=== PATIENT | male | born 1950 | race Caucasian/White ===

== ENCOUNTER → 2021-02-28 08:53 | Outpatient (BNVA) | payer SELFPAY | PROVIDERS: Visit Provider Urology ==

== ENCOUNTER → 2022-03-20 12:57 | Outpatient (BNVA) | payer MEDICARE, SELFPAY | PROVIDERS: PCP Internal Medicine; Visit Provider Urology | DX: N52.01 Erectile dysfunction due to arterial insufficiency (principal); N40.1 Benign prostatic hyperplasia with lower urinary tract symptoms; N13.8 Other obstructive and reflux uropathy; R97.20 Elevated prostate specific antigen [PSA] | CPT/HCPCS: 51798; 99212 ==

== ENCOUNTER → 2023-03-23 09:44 | Outpatient (BNVA) | payer MEDICARE, SELFPAY | PROVIDERS: PCP Internal Medicine; Visit Provider Urology | DX: N40.1 Benign prostatic hyperplasia with lower urinary tract symptoms (principal); N13.8 Other obstructive and reflux uropathy; N52.01 Erectile dysfunction due to arterial insufficiency; R97.20 Elevated prostate specific antigen [PSA] | CPT/HCPCS: 99212 ==

== ENCOUNTER 2024-03-24 08:37 | Outpatient (AMB) | payer MEDICARE, SELFPAY ==
--- NOTE | 2024-03-24 08:41 | MHC.OFFVIS ---
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 He is a patient of Dr. Han. He is seen for the following urologic conditions. - lower urinary tract symptoms - elevated PSA - erectile dysfunction Continue good response with dutasteride twice week therapy Doing well with daily tadalafil Takes p.r.n. tamsulosin when traveling Also continued response to 5 mg daily tadalafil Prescriptions refill 12 month follow-up Has been on [employer] advisory board Prostate/Bladder: Stable with PSA Continues taking dutasteride twice a week Elevated PSA/Abnormal BRAYDEN: Known large prostate volume PSA staying at 4.9 - had reduced 5AR so this is allowable. He presents for further evaluation of elevated PSA. Current management is observation. Laboratory investigations include a total PSA evaluation July 2009 2.0, April 2012 5.2, 25% free, 2012 2.4, December 2014 3.0, January 2017 7.3, free 16%, PCPT 9% high-grade April 2017 7.6 18% Aug 2017 7.8 PSAD < 0.10 01/16 , a free and total PSA evaluation 4.5 24% 12/17 PSA 4.9 01/18 3.3, 01/19 3.4, 02/18 3.0, 02/19 3.2 Imaging investigations include a transrectal ultrasound Yes bladder us 09/14 - enlarged markedly Prostate Volume 105 Individualized Prostate Cancer Risk Calculator 5-10% high risk. Therapeutic plan will be PSA density is within acceptable limits. [facility] Medical History BPH (benign prostatic hyperplasia) Elevated PSA Erectile dysfunction due to arterial insufficiency HTN (hypertension) Lower urinary tract symptoms due to benign prostatic hyperplasia Surgical History History of appendectomy Hx of arthroscopic knee surgery Hx of laminectomy Hx of vasectomy Review of Systems Const Denies chills and Denies fever(s) Card Reports no additional complaints and Denies syncope Resp Denies cough GI Denies abdominal pain and Denies heartburn Reports as per HPI and Denies change in libido Neuro Denies syncope Psych Denies change in libido Endo Denies change in libido Physical Exam Const General: cooperative, healthy appearing, comfortable and no acute distress Orientation/consciousness: patient oriented x3 HEENT Face and sinus: Yes normal facial exam Mouth: moist mucous membranes Neck Neck: Yes normal visual inspection, Yes full ROM and Yes trachea midline Chest Chest palpation & inspection: normal inspection of the chest Resp Effort & Inspection: normal respiratory effort, able to speak in complete sentences and no respiratory distress GI Inspection: Yes normal to inspection Back/Spine/Pelvis Cervical Spine: normal cervical lordosis Thoracic/Lumbar Spine: thoracic and lumbar spine normal to inspection Skin General skin exam: no rashes or lesions noted Neuro General: patient oriented x3, gait normal, tone normal and moves all extremities Extrem General: Yes normal to inspection and Yes capillary refill normal Office Procedures Post Void Residual Post Residual Void Post Void Residual (PVR): 0 [id number] Void Residual by ultrasound Assessment & Plan Assessment & Plan (1) BPH w urinary obs/LUTS: Code(s): N40.1 - Benign prostatic hyperplasia with lower urinary tract symptoms; N13.8 - Other obstructive and reflux uropathy Category: Medical (2) Elevated PSA: Code(s): R97.20 - Elevated prostate specific antigen [PSA] Category: Medical (3) Erectile dysfunction due to arterial insufficiency: Code(s): N52.01 - Erectile dysfunction due to arterial insufficiency Category: Medical Plan Twelve month follow-up renal US Orders: Orders AMB Post Void Residual by ultrasound Today N13.8 - Other obstructive and reflux uropathy, N40.1 - Benign prostatic hyperplasia with lower urinary tract symptoms Prostate Specific Antigen 364 Days R97.20 - Elevated prostate specific antigen [PSA] Patient Instructions: Imaging studies, laboratory and physical exam results were discussed and reviewed in detail. No major barriers to patient understanding were identified. An opportunity to ask questions regarding the treatment plan was provided. All questions were answered. The patient expressed understanding and agreement with the above treatment plan. The patient is aware they should contact our office by phone for worsening of their current condition or the appearance of new urologic symptoms. Compliance is encouraged with any medications and followup testing that is ordered. It is a privilege to participate in the urologic care of your patient. If you have any questions or concerns regarding treatment for the above conditions, or other urologic issues, please do not hesitate to contact me. The office telephone contact is [phone]. This note is constructed using voice recognition software. While every effort has been made to ensure accuracy passenger vessel chef errors may have been included. Yours sincerely, Dr Kan Lewis MD, [facility] - Urology Providers of Expert, Compassionate Care for the Genitourinary System Coding Level of Care Code Est Pt Level 4 (87427) Diagnoses BPH w urinary obs/LUTS N40.1; N13.8 Elevated PSA R97.20 Erectile dysfunction due to arterial insufficiency N52.01 CPT Codes Post Residual Void - PVR CPT Code: 81368-[id number] Void Residual by ultrasound ([id number])
== END 2024-03-24 09:27 | disposition home or self-care (01) ==
PROVIDERS: Visit Provider Urology
DX: N40.1 Benign prostatic hyperplasia with lower urinary tract symptoms (principal); N13.8 Other obstructive and reflux uropathy; R97.20 Elevated prostate specific antigen [PSA]; N52.01 Erectile dysfunction due to arterial insufficiency
CPT/HCPCS: 99213

== ENCOUNTER → 2024-03-24 08:37 | Outpatient (BNVA) | payer MEDICARE, SELFPAY | PROVIDERS: Visit Provider Urology | DX: N40.1 Benign prostatic hyperplasia with lower urinary tract symptoms (principal); N13.8 Other obstructive and reflux uropathy; R97.20 Elevated prostate specific antigen [PSA]; N52.01 Erectile dysfunction due to arterial insufficiency; Z79.899 Other long term (current) drug therapy | CPT/HCPCS: 51798; 99212 ==

== ENCOUNTER 2025-03-23 08:41 | Outpatient (AMB) | payer MEDICARE, SELFPAY ==
--- NOTE | 2025-03-23 08:43 | A.OFFVIS_ITS ---
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 He is seen for the following urologic conditions. - lower urinary tract symptoms - elevated PSA - erectile dysfunction Continue good response with dutasteride twice week therapy Doing well with daily tadalafil Takes p.r.n. tamsulosin when traveling Also continued response to 5 mg daily tadalafil Prescriptions refill 12 month follow-up Has been on [employer] advisory board Urinary Symptoms Review - Lower urinary tract symptoms managed with dutasteride twice weekly. - Taking daily tadalafil, and PRN tamsulosin when traveling. - Previous urinary retention post-surgery; anticipates issues with upcoming knee replacement. - Recent PVR noted at 30 cc, previously 0 cc. - No reported nocturia or incontinence issues under managed conditions. - Discussed use of Ashley catheter post-knee replacement to mitigate retention. Prostate/Bladder: Stable with PSA Continues taking dutasteride twice a week Elevated PSA/Abnormal BRAYDEN: Known large prostate volume PSA staying at 4.9 - had reduced 5AR so this is allowable. He presents for further evaluation of elevated PSA. Current management is observation. Laboratory investigations include a total PSA evaluation July 2009 2.0, April 2012 5.2, 25% free, 2012 2.4, December 2014 3.0, January 2017 7.3, free 16%, PCPT 9% high-grade April 2017 7.6 18% Aug 2017 7.8 PSAD < 0.10 01/16 , a free and total PSA evaluation 4.5 24% 12/17 PSA 4.9 01/18 3.3, 01/19 3.4, 02/18 3.0, 02/19 3.2 Imaging investigations include a transrectal ultrasound Yes bladder us 09/14 - enlarged markedly Prostate Volume 105 Individualized Prostate Cancer Risk Calculator 5-10% high risk. Therapeutic plan will be PSA density is within acceptable limits. [facility] Medical History BPH (benign prostatic hyperplasia) Elevated PSA Erectile dysfunction due to arterial insufficiency HTN (hypertension) Lower urinary tract symptoms due to benign prostatic hyperplasia Surgical History History of appendectomy Hx of arthroscopic knee surgery Hx of laminectomy Hx of vasectomy Review of Systems Const Denies chills and Denies fever(s) Card Reports no additional complaints and Denies syncope Resp Denies cough GI Denies abdominal pain and Denies heartburn Reports as per HPI and Denies change in libido Neuro Denies syncope Psych Denies change in libido Endo Denies change in libido Physical Exam Const General: cooperative, healthy appearing, comfortable and no acute distress Orientation/consciousness: patient oriented x3 HEENT Face and sinus: Yes normal facial exam Mouth: moist mucous membranes Neck Neck: Yes normal visual inspection, Yes full ROM and Yes trachea midline Chest Chest palpation & inspection: normal inspection of the chest Resp Effort & Inspection: normal respiratory effort, able to speak in complete sentences and no respiratory distress GI Inspection: Yes normal to inspection Back/Spine/Pelvis Cervical Spine: normal cervical lordosis Thoracic/Lumbar Spine: thoracic and lumbar spine normal to inspection Skin General skin exam: no rashes or lesions noted Neuro General: patient oriented x3, gait normal, tone normal and moves all extremities Extrem General: Yes normal to inspection and Yes capillary refill normal Results AMB Urinalysis, Automated UA Leukoctes 0 Moy/uL Last Edit by Teresita Macdonald on 03/23/25 09:35 UA Nitrite Negative Last Edit by Teresita Macdonald on 03/23/25 09:35 UA Urobilinogen 0.2 mg/dL Last Edit by Teresita Macdonald on 03/23/25 09:35 UA Protein 0 mg/dL Last Edit by Teresita Macdonald on 03/23/25 09:35 UA pH 6.5 Last Edit by Teresita Macdonald on 03/23/25 09:35 UA Blood 80 Darvin/uL Last Edit by Teresita Macdonald on 03/23/25 09:35 UA Specific [place] 1.015 Last Edit by Teresita Macdonald on 03/23/25 09:35 UA Ketone Negative Last Edit by Teresita Macdonald on 03/23/25 09:35 UA Bilirubin 0 mg/dL Last Edit by Teresita Macdonald on 03/23/25 09:35 UA Glucose 0 mg/dL Last Edit by Teresita Macdonald on 03/23/25 09:35 Assessment & Plan Assessment & Plan (1) BPH w urinary obs/LUTS: Code(s): N40.1 - Benign prostatic hyperplasia with lower urinary tract symptoms; N13.8 - Other obstructive and reflux uropathy Category: Medical (2) Erectile dysfunction due to arterial insufficiency: Code(s): N52.01 - Erectile dysfunction due to arterial insufficiency Category: Medical (3) Elevated PSA: Code(s): R97.20 - Elevated prostate specific antigen [PSA] Category: Medical Plan 1. Benign Prostatic Hyperplasia Management includes dutasteride twice weekly and daily tadalafil. PRN tamsulosin for travel. Stable symptoms. Monitoring PSA. 2. Erectile Dysfunction Continue daily tadalafil. Monitoring effect and tolerability. 3. Elevated Prostate-Specific Antigen PSA PSA to be rechecked in six months. Possible prostate MRI if indicated. 4. Urinary Retention Prophylactic Ashley catheter post-knee replacement to manage anesthesia-related retention. 5. Degenerative Joint Disease Scheduled Knee Replacement Communicated plan for post-surgical Ashley catheter placement to manage retention risk. Discussion Notes During the visit, we reviewed the patient's lower urinary tract symptoms, prim arily managed by dutasteride and tadalafil, with PRN tamsulosin aiding during travel. Despite noted PSA variation, current levels are stable. We discussed potential concerns of urinary retention in light of his impending knee replacement, outlining a plan for proactive Ashley catheter placement. Requests for catheter usage post-procedure align with historical issues of anesthesia- induced urinary retention, which was mutually consented to minimize immediate post-operative complications. Furthermore, the utility of further diagnostic PSA monitoring was considered, deferring immediate MRI unless significant changes arise. The benefits, rationale, and preventative strategies were sufficiently conveyed and understood by the patient, providing clear anticipatory guidance for recovery. Patient Instructions - Continue dutasteride twice weekly and daily tadalafil. - Use tamsulosin as needed when traveling. - Inform surgical and anesthesia teams about the Ashley catheter plan for upcoming surgery. - Return for PSA check in six months or sooner if urinary symptoms worsen. - Discuss any new urinary symptoms or medication side effects promptly. - Follow all pre-and post-operative instructions for knee replacement surgery. - Engage in pre-habilitation exercises as advised prior to surgery. Orders: Orders PSA,Total (Free>4and<10) 6 Months R97.20 - Elevated prostate specific antigen [PSA] Patient Instructions: This note is constructed using voice recognition software. While every effort has been made to ensure accuracy ocean export coordinator errors may have been included. Imaging studies, laboratory and physical exam results were discussed and reviewed in detail. No major barriers to patient understanding were identified. An opportunity to ask questions regarding the treatment plan was provided. All questions were answered. The patient expressed understanding and agreement with the above treatment plan. The patient is aware they should contact our office by phone for worsening of their current condition or the appearance of new urologic symptoms. Compliance is encouraged with any medications and followup testing that is ordered. It is a privilege to participate in the urologic care of your patient. If you have any questions or concerns regarding treatment for the above conditions, or other urologic issues, please do not hesitate to contact me. The office telephone contact is [phone]. Sincerely, Dr Kan Lewis MD, [facility] - Urology Compassionate Specialist Care for the Genitourinary System Coding Level of Care Code Est Pt Level 4 (84054) Complex EM visit Add On G2211 Diagnoses BPH w urinary obs/LUTS N40.1; N13.8 Erectile dysfunction due to arterial insufficiency N52.01 Elevated PSA R97.20
--- OUTSIDE RECORDS SUMMARY | 2025-03-23 08:47 | XMS_ITS ---
Author Organization [facility] Address [address] [facility] [place] [address] Care Team Providers Care Teacher Associate Name Role Phone Maryellen LELA MSc, Linda Unavailable [phone] REASON FOR VISIT PT Progress Note Encounters Encounter Location Date Provider Diagnosis [facility] [address] [place] [address] 06/07/2024 Linda Bojorquez Plan Of Treatment No Information Progress Notes * Sammy CHAMBERLAINDOB:1950 (73 yo M)Acc No.[id number]:06/07/2024 Patient:?Sammy CHAMBERLAIN :1950???Age:73 Y???Sex:Male Address:[address] [place] [id number] * true * Date:? Generated for Dorai ryan/Mookie/eTransmitting on:?03/23/2025 08:47 AM EDT
--- OUTSIDE RECORDS SUMMARY | 2025-03-23 08:47 | XMS_ITS ---
Author Organization [facility] Address [address] [facility] [address] [place] [address] Care Team Providers Care Face Hardener Name Role Phone Maryellen LEAL MSc, Linda Unavailable [phone] REASON FOR VISIT PT Progress Note Encounters Encounter Location Date Provider Diagnosis [facility] [address] [place] [address] 07/13/2024 Linda Bojorquez Plan Of Treatment No Information Progress Notes * Sammy CHAMBERLAINDOB:1950 (73 yo M)Acc No.[id number]:07/13/2024 Patient:?Sammy CHAMBERLAIN :1950???Age:73 Y???Sex:Male Address:[address] [place] [id number] * true * Date:? Generated for Dorai ryan/Mookie/eTransmitting on:?03/23/2025 08:47 AM EDT
--- OUTSIDE RECORDS SUMMARY | 2025-03-23 08:47 | XMS_ITS | Clinical Summary ---
Author Organization [facility] [employer] Address [address] [facility] [place] [address] Phone Care Team Providers Care Curator Of Manuscripts Name Role Phone Chapincito Han MD Primary Care Provider Allergies Active Allergy Reactions Criticality Noted Date Comments Ciprofloxacin Low 10/31/2020 Other reaction(s): Rash Medications irbesartan (AVAPRO) 150 mg tabletIndications :Mixed hyperlipidemia,Es sential (primary) hypertension TAKE 1 AND 1/2 TABLETS DAILY BY MOUTH 135 tablet 1 4 Active metoprolol succinate (TOPROL-XL) 25 mg 24 hr tablet TAKE 1 TABLET BY MOUTH EVERY DAY 90 tablet 1 5 Active rosuvastatin (CRESTOR) 20 mg tablet Take 20 mg by mouth daily. Active tadalafiL (CIALIS) 5 mg tablet Take 5 mg by mouth as needed. Active dutasteride (AVODART) 0.5 mg capsule Take by mouth. Take 0.5 mg by mouth daily. - Oral Active Active Problems Problem Noted Date Diagnosed Date Essential hypertension 01/15/2025 Left atrial enlargement 01/15/2025 Carpal tunnel syndrome on both sides 05/14/2023 Mixed hyperlipidemia 05/13/2022 Overview (01/18/2025): Last Assessment & Plan: Last lipid panel 12/20 total cholesterol 141, HDL 58, LDL 62. Continue statin. Encounters Date Type Department Care Team Description 03/20/2025 5:38 PM EDT - 03/20/2025 11:59 PM EDT Hospital Encounter [facility] MRI [address] [place] [id number] Pain Discharge Disposition: Home or Self Care 03/08/2025 Telephone [place] [address] [phone] Alexia Carter MD 03/06/2025 10:00 AM EDT Ancillary Procedure [place] [address] [phone] Pre-operative cardiovascular examination (Primary Dx); Essential hypertension; Left atrial enlargement from Last 3 Months Social History Tobacco Use Types Packs/Day Years Used Date Smoking Tobacco: Never Smokeless Tobacco: Never Alcohol Use Standard Drinks/Week Comments Yes 0 (1 standard drink = 0.6 oz pur e alcohol) Sex and Gender Information Value Date Recorded Sex Assigned at Not on file Legal Sex Male 9:00 PM EST Gender Identity Not on file Sexual Orientation Not on file Obstetrics History Last Filed Vital Signs Vital Sign Reading Time Taken Comments Blood Pressure 147/77 03/06/2025 10:55 AM EDT Pulse 51 05/13/2022 9:39 AM EDT Temperature - - Respiratory Rate - - Oxygen Saturation - - Inhaled Oxygen Concentration - - Weight 82.6 kg (182 lb) 03/06/2025 10:55 AM EDT Height 172.7 cm (5' 8 ) 03/06/2025 10:55 AM EDT Body Mass Index 27.67 03/06/2025 10:55 AM EDT Plan of Treatment Upcoming Encounters Date Type Department Care Team (Late st Contact Info) Description 10/05/2025 9:50 AM EST Office Visit [place] [address] [phone] Alexia Carter MD [address] [place] [phone] Health Maintenance Due Date Last Done Comments Colorectal Cancer Screening: Colonoscopy 11/08/2022 Depression Screening 11/08/2022 Falls Risk Assessment 11/08/2022 Hepatitis C Screening 11/08/2022 Social Influencers of Health Screening 11/08/2022 Medicare Annual Wellness Visit 12/30/2023 12/30/2022 COVID-19 Vaccine ( season) 2025 08/01/2024, 10/04/2023, 09/24/2022, Additional history exists Hypertension/CHF/CAD Annual BMP Blood Test 02/16/2025 02/17/2024, 01/22/2021 RSV Immunization Adult Patients (1 - 1-dose 75+ series) 2027 Cholesterol Screening (Lipid Panel) 02/16/2029 02/17/2024, 01/22/2021 DTaP,Tdap,and Td Vaccines (2 - Td or Tdap) 07/28/2034 07/28/2024 Zoster Vaccines Completed 01/05/2022, 06/30, 08/15/2017 Pneumococcal Vaccine: 50+ Years Completed 12/02/2023, 10/31/2020 Influenza Vaccine Completed 10/23/2024, , 09/24/2022, Additional history exists HIB Vaccines Aged Out No longer eligi ble based on patient's age to complete this topic HPV Vaccines Aged Out No longer eligi ble based on patient's age to complete this topic Hepatitis A Vaccines Aged Out No long er eligible based on patient's age to complete this topic Hepatitis B Vaccines Aged Out No long er eligible based on patient's age to complete this topic IPV Vaccines Aged Out No longer eligi ble based on patient's age to complete this topic MMR Vaccines Aged Out No longer eligi ble based on patient's age to complete this topic Meningococcal ACWY Vaccine Aged Out N o longer eligible based on patient's age to complete this topic Meningococcal B Vaccine Aged Out No l onger eligible based on patient's age to complete this topic RSV Immunization Patients Under 20 months Aged Out No longer eligible based on patient's age to complete this topic Varicella Vaccines Aged Out No longer eligible based on patient's age to complete this topic Procedures Procedure Name Priority Date/Time Associated Diagnosis Comments MR CERVICAL SPINE WO CONTRAST Routine 03/20/2025 6:14 PM EDT Pain ECG 12-LEAD Routine 03/06/2025 11:06 AM EDT Essential hypertension Left atrial enlargement Pre-operative cardiovascular examination TRANSTHORACIC ECHOCARDIOGRAM (TTE) COMPLETE Routine 03/06/2025 10:55 AM EDT Essential hypertension Left atrial enlargement ANNUAL BMP BLOOD TEST Routine 02/17/2024 LIPID PANEL Routine 02/17/2024 from Last 3 Months or Most Recently Relevant to Health Maintenance Results * MR Cervical Spine wo Contrast (03/20/2025 6:14 PM EDT) Anatomical Region Laterality Modality C-spine, Spine Magnetic Resonan ce 03/21/2025 8:24 AM EDT Impressions 03/21/2025 8:46 AM EDT 1. ??Multilevel degenerative changes of the cervical spine as detailed above. 2. ??Stable small focus of signal abnormality in the left central cord at the superior C4 level suggestive of myelomalacia. ??Stable mild generalized cervical cord atrophy. -------- FINAL REPORT -------- Dictated By: Irving Padilla Dictated Date: 03/21/2025 08:24 ET Assigned Physician: Irving Padilla Reviewed and Electronically Signed By: Irving Padilla Signed Date: 03/21/2025 08:46 ET Workstation ID: [id number] Transcribed By: Self Edit Transcribed Date: 03/21/2025 08:29 ET Narrative 03/21/2025 8:46 AM EDT PROCEDURE: MRI of the cervical spine without intravenous contrast. TECHNIQUE: Sagittal and axial multisequence MRI of the cervical spine without intravenous contrast administration. HISTORY: pain COMPARISON: 11/19/2022. FINDINGS: Visualized portions of the brain and skull base are normal. The paraspinous soft tissues are normal. No marrow signal abnormality. ??Straightening of the typical cervical lordosis. Stable small focus of signal abnormality in the left central cord at the superior C4 level. ??Mild generalized cervical cord atrophy. Cervical disc levels: C2-3: Mild endplate irregularity. ??Small bilateral uncovertebral spurs and minimal degenerative changes of the facet joints. ??No spinal or foraminal stenosis. C3-4: Mild endplate irregularity. ??Minimal anterior endplate osteophytes. ??Small bilateral uncovertebral spurs. ??Small central focal protrusion which indents the cord. ??Moderate right and mild left facet arthropathy. ??Mild spinal stenosis. ??Moderate right foraminal stenosis. C4-5: Slight anterolisthesis. ??Mild endplate irregularity. ??Minimal bilateral uncovertebral spurring. ??Small symmetric disc bulge with a superimposed small central focal protrusion. ??Mild posterior ligamentous hypertrophy. ??Moderate left and mild right facet arthropathy. ??Mild-moderate spinal stenosis. ??Severe left and moderate right foraminal stenosis. C5-6: Mild disc space height loss and endplate irregularity. ??Small anterior endplate osteophytes. ??Minimal bilateral uncovertebral spurs. ??Moderate left and mild right facet arthropathy. ??No spinal stenosis. ??Moderate-severe right and mild left foraminal stenosis. C6-7: Mild disc space height loss and endplate irregularity. ??Small anterior endplate osteophytes. ??Small right larger than left uncovertebral spurs and a small symmetric disc osteophyte complex. ??Mild bilateral facet arthropathy. ??No significant spinal stenosis. ??Mild-moderate bilateral foraminal stenosis. C7-T1: Mild endplate irregularity. ??Minimal anterior endplate osteophytes. ??Minimal right uncovertebral spurs. ??Mild bilateral facet arthropathy. ??Mild bilateral foraminal stenosis. ??No spinal stenosis. Procedure Note Irving Padilla MD - 03/21/2025 PROCEDURE: MRI of the cervical spine without intravenous contrast. TECHNIQUE: Sagittal and axial multisequence MRI of the cervical spinewithout intravenous contrast administration. HISTORY: pain COMPARISON: 11/19/2022. FINDINGS: Visualized portions of the brain and skull base are normal. The paraspinous soft tissues are normal. No marrow signal abnormality. Straightening of the typical cervicallordosis. Stable small focus of signal abnormality in the left central cord at thesuperior C4 level. Mild generalized cervical cord atrophy. Cervical disc levels: C2-3: Mild endplate irregularity. Small bilateral uncovertebral spurs andminimal degenerative changes of the facet joints. No spinal or foraminalstenosis. C3-4: Mild endplate irregularity. Minimal anterior endplate osteophytes.Small bilateral uncovertebral spurs. Small central focal protrusion whichindents the cord. Moderate right and mild left facet arthropathy. Mildspinal stenosis. Moderate right foraminal stenosis. C4-5: Slight anterolisthesis. Mild endplate irregularity. Minimalbilateral uncovertebral spurring. Small symmetric disc bulge with asuperimposed small central focal protrusion. Mild posterior ligamentoushypertrophy. Moderate left and mild right facet arthropathy.Mild-moderate spinal stenosis. Severe left and moderate right foraminalstenosis. C5-6: Mild disc space height loss and endplate irregularity. Smallanterior endplate osteophytes. Minimal bilateral uncovertebral spurs.Moderate left and mild right facet arthropathy. No spinal stenosis.Moderate-severe right and mild left foraminal stenosis. C6-7: Mild disc space height loss and endplate irregularity. Smallanterior endplate osteophytes. Small right larger than left uncovertebralspurs and a small symmetric disc osteophyte complex. Mild bilateral facetarthropathy. No significant spinal stenosis. Mild-moderate bilateralforaminal stenosis. C7-T1: Mild endplate irregularity. Minimal anterior endplate osteophytes.Minimal right uncovertebral spurs. Mild bilateral facet arthropathy.Mild bilateral foraminal stenosis. No spinal stenosis. IMPRESSION: 1. Multilevel degenerative changes of the cervical spine as detailedabove. 2. Stable small focus of signal abnormality in the left central cord atthe superior C4 level suggestive of myelomalacia. Stable mild generalizedcervical cord atrophy. -------- FINAL REPORT -------- Dictated By: Irving Padilla Dictated Date: 03/21/2025 08:24 ET Assigned Physician: Irving Padilla Reviewed and Electronically Signed By: Irving Padilla Signed Date: 03/21/2025 08:46 ET Workstation ID: [id number] Transcribed By: Self Edit Transcribed Date: 03/21/2025 08:29 ET us Lencho Mcdonald MD IMG MRI PROCEDURES Final Result * ECG 12 lead (03/06/2025 11:06 AM EDT) Ventricular Rate ECG 46 BPM GEMUSE Atrial Rate 46 BPM GEMUSE P-R Interval 154 ms GEMUSE QRS Duration 96 ms GEMUSE Q-T Interval 452 ms GEMUSE QTc 395 ms GEMUSE P Wave Phoenix 33 degrees GEMUSE R [place] 24 degrees GEMUSE T Phoenix -2 degrees GEMUSE ECG Interpretation Sinus bradycardia Nonspecific T wave abnormality Abnormal ECG When compared with ECG of 17-AUG-2012 11:21, Vent. rate has decreased BY ??25 BPM Nonspecific T wave abnormality, worse in Inferior leads T wave inversion now evident in Lateral leads But samw as office ecg 2023 Confirmed by Estfeanía CARTER, ALEXIA ([id number]) on 03/07/2025 2:20:05 PM GEMUSE 03/06/2025 11:0 6 AM EDT 03/07/2025 2:20 PM EDT us Alexia Carter MD ECG ORDERABLES Final Result GEMUSE * (ABNORMAL) TRANSTHORACIC ECHOCARDIOGRAM (TTE) COMPLETE (03/06/2025 10:55 AM EDT) Left Atrium Minor Phoenix 6.1 cm CV PACS Left Atrium Major Phoenix 6.1 cm CV PACS LA Area Sys (A2C) 21 cm2 CV PACS LA Area Sys (A4C) 23 cm2 CV PACS LA Volume (BP) 74 mL CV PACS RA Area 14.5 cm2 CV PACS RA 2D Volume 34 mL CV PACS AV Regurgitation PHT 619 ms CV PACS AR Max Velocity 4.7 m/s CV PACS AV Peak Patel 1.7 m/s CV PACS AV Peak Gradient 11 mmHg CV PACS AV Mean Gradient 5 mmHg CV PACS Ao VTI 38.9 cm CV PACS AV Area Continuity Equation 2.5 cm2 CV PACS AV Area Peak Velocity 2.4 cm2 CV PACS Aortic Sinus Valsalva 3.6 cm CV PACS Ascending Aorta 3.4 cm CV PACS IVC Proximal 1.3 cm CV PACS IVSD 1.3(A) 0.6 - 1.0 cm CV PACS LVIDD 5.0 4.2 - 5.8 cm CV PACS LVIDS 2.8 2.5 - 4.0 cm CV PACS LVOT Diameter 2.2 cm CV PACS LVOT Mean Patel 0.6 m/s CV PACS LVOT Mean Grad 2 mmHg CV PACS LVOT Peak VTI 25.2 cm CV PACS LVOT Peak Patel 1.1 m/s CV PACS LVOT Peak Gradient 4 mmHg CV PACS LVPWD 1.2(A) 0.6 - 1.0 cm CV PACS MV E' Tissue Velocity Lateral 9 cm/s CV PACS MV E' Tissue Velocity Septal 11 cm/s CV PACS LVOT Area 3.8 cm2 CV PACS LVOT Stroke Volume 96 mL CV PACS MV Deceleration [place] 2.3 m/s2 CV PACS E Wave Deceleration Time 226 119 - 242 ms CV PACS MV PHT 66 ms CV PACS MV Peak A Patel 0.78 m/s CV PACS MV Peak E Patel 0.51 m/s CV PACS MV Area PHT 3.3 cm2 CV PACS PV Acceleration Time 106 ms CV PACS PV Peak Velocity 1.4 m/s CV PACS PV Peak Gradient 8 mmHg CV PACS RV Diastolic Basal Dimension 3.3 2.5 - 4.1 cm CV PACS TAPSE 25 mm CV PACS TR Peak Velocity 2.51 m/s CV PACS TR Peak Gradient 25 mmHg CV PACS E/E' Ratio Septal 5 CV PACS E/E' Ratio Averaged 5 CV PACS Relative Wall Thickness ratio 0.48 CV PACS LVOT:AV VTI Index 0.65 CV PACS FS 44 % CV PACS LV Mass 2D 248 g CV PACS LVOT flow 228 mL/s CV PACS AV Velocity Ratio 0.65 CV PACS E/A Ratio 0.7 CV PACS E/E' Ratio Lateral 6 CV PACS BSA 1.99 m2 CV PACS LA Volume Index (BP) 38(A) mL/m2 CV PACS LVIDD Index 2.55 cm/m2 CV PACS LVIDS Index 1.43 cm/m2 CV PACS LV Mass Index 2D 126(A) 50 - 102 g/m2 CV PACS LVOT Stroke Index 49 mL/m2 CV PACS RA 2D Volume Index 17(A) 18 - 32 mL/m2 CV PACS AMRITA Index (VTI) 1.26 cm2/m2 CV PACS AMRITA Index (Pk Patel) 1.22 cm2/m2 CV PACS Ascending Aorta Index 1.73 cm/m2 CV PACS Anatomical Region Laterality Modality Ultrasound Narrative 03/08/2025 8:49 AM EDT ?Mild concentric LVH. ??Normal internal cavity dimensions. ??Vigorous systolic function with an EF in the range of 60%. ??No wall motion abnormalities. ??Normal diastolic function ?Normal RV size and function. ?Mildly dilated left atrium with a volume index in the range of 37 mL/m?Normal right atrial size ?Trace MR. ??Trace-1+ aortic insufficiency. ??No other valvular abnormalities. ?Normal aorta. ?[facility] ??In 2019 the LA volume index was 48 mL/m??. ??And on some of the measurements today it reached 47. ??So no significant change dating back to 2019. ??The volume index is somewhere between 37 and 47 depending on the image chosen. Left Ventricle Left ventricle cavity size is normal. There is mild hypertrophy. Systolic function is normal with an ejection fraction of 60-65%. There are no regional LV wall motion abnormalities. There is no diastolic dysfunction. Right Ventricle Right ventricle cavity appears normal. Systolic function is normal. Left Atrium Left atrium cavity is moderately dilated. I believe the volume index is closer to 37 mL/m??. Right Atrium Right atrium cavity is mildly dilated. Mitral Valve The leaflets are mildly thickened. There is trace regurgitation. There is no evidence of mitral valve stenosis. Tricuspid Valve Tricuspid valve structure is normal. There is trace-mild regurgitation. There is no evidence of tricuspid valve stenosis. Aortic Valve The aortic valve is trileaflet. There is mild regurgitation. There is no evidence of aortic valve stenosis. Pulmonic Valve Visualized portions of the pulmonic valve appear normal. No significant pulmonic valve regurgitation. There is no evidence of pulmonic valve stenosis. Ascending Aorta The Sinus of Valsalva is (3.6 cm). The ascending aorta is (3.4 cm). Pericardium Pericardium appears normal. Study Details Overall the study quality was adequate. us Alexia Carter MD CV ECHO PROCEDURES Final Result * Annual BMP Blood Test (02/17/2024) Annual BMP Blood Test Abstracted Result [facility] Historical Provider HEALTH MAINTENANCE Final Result * (ABNORMAL) Lipid panel (02/17/2024) LDL/HDL Ratio 3 0 - 4 Triglycerides 97 0 - 150 mg/dL Cholesterol 182 0 - 200 mg/dL HDL 53 >=40 mg/dL LDL Cholesterol 110(A) 0 - 100 mg/dL Blood Venous blood specimen / Unknown Historical Provider LAB BLOOD ORDERABLES Ariana l Result from Last 3 Months or Most Recently Relevant to Health Maintenance Insurance MEDICARE [facility] Advance Directives Documents on File Type Date Recorded Patient Area Relief Pilot Expl anation Health Care Decision (hx) 08/19/2012 AD FERGUSON DIRECTIVE Health Care Decision (hx) 08/19/2012 AD FERGUSON DIRECTIVE Health Care Decision (hx) 08/19/2012 AD FERGUSON DIRECTIVE Health Care Decision (hx) 08/19/2012 AD FERGUSON DIRECTIVE Health Care Decision (hx) 08/19/2012 AD FERGUSON DIRECTIVE Health Care Decision (hx) 08/19/2012 AD FERGUSON DIRECTIVE Health Care Decision (hx) 08/19/2012 AD FERGUSON DIRECTIVE Health Care Decision (hx) 08/19/2012 AD FERGUSON DIRECTIVE Health Care Decision (hx) 08/19/2012 AD FERGUSON DIRECTIVE Health Care Decision (hx) 08/19/2012 AD FERGUSON DIRECTIVE Health Care Decision (hx) 08/19/2012 AD FERGUSON DIRECTIVE Health Care Decision (hx) 08/19/2012 AD FERGUSON DIRECTIVE Health Care Decision (hx) 08/19/2012 AD FERGUSON DIRECTIVE Health Care Decision (hx) 08/19/2012 AD FERGUSON DIRECTIVE Health Care Decision (hx) 08/19/2012 AD FERGUSON DIRECTIVE Care Teams Curator Of Manuscripts Relationship Specialty Start Date End Date Chapincito Han MD [address] [facility] [address] [place], [place] PCP - General Internal Medicine 11/29/11
--- OUTSIDE RECORDS SUMMARY | 2025-03-23 08:47 | XMS_ITS | Encounter Summary ---
Author Organization [facility] Address [address] [place] [address] Care Team Providers Care Dice Table Person Name Role Phone Chapincito Han MD Primary Care Provider [phone] Reason for Referral * Imaging (Routine) - Authorized Specialty Diagnoses / Procedures Referred By Contac t Referred To Contact Radiology Diagnoses Pain Procedures MR Cervical Spine wo Contrast Lencho Mcdonald MD [address] [place] [address] [place] [address] Phone: tel: fax: [facility] Referral ID Status Reason Start Date Expiration Date V isits Requested Visits Authorized [id number] Authorized 03/20/2025 03/20/2026 1 1 Reason for Visit * Imaging (Routine) - Authorized Specialty Diagnoses / Procedures Referred By Contac t Referred To Contact Radiology Diagnoses Pain Procedures MR Cervical Spine wo Contrast Lencho Mcdonald MD [address] [place] [address] [place] [address] Phone: tel: fax: [facility] Referral ID Status Reason Start Date Expiration Date V isits Requested Visits Authorized [id number] Authorized 03/20/2025 03/20/2026 1 1 Encounter Details Date Type Department Care Team (Latest Contact Info) Description 03/20/2025 5:38 PM EDT - 03/20/2025 11:59 PM EDT Hospital Encounter [facility] MRI [address] [place] [phone] Pain Discharge Disposition: Home or Self Care Social History Tobacco Use Types Packs/Day Years Used Date Smoking Tobacco: Never Smokeless Tobacco: Never Alcohol Use Standard Drinks/Week Comments Yes 0 (1 standard drink = 0.6 oz pur e alcohol) Sex and Gender Information Value Date Recorded Sex Assigned at Not on file Legal Sex Male 9:00 PM EST Gender Identity Not on file Sexual Orientation Not on file documented as of this encounter Medications at Time of Discharge dutasteride (AVODART) 0.5 mg capsule Take by mouth. Take 0.5 mg by mouth daily. - Oral irbesartan (AVAPRO) 150 mg tabletIndications: Mixed hyperlipidemia,Ess ential (primary) hypertension TAKE 1 AND 1/2 TABLETS DAILY BY MOUTH 135 tablet 1 11/17/2024 metoprolol succinate (TOPROL-XL) 25 mg 24 hr tablet TAKE 1 TABLET BY MOUTH EVERY DAY 90 tablet 1 01/04/2025 rosuvastatin (CRESTOR) 20 mg tablet Take 20 mg by mouth daily. tadalafiL (CIALIS) 5 mg tablet Take 5 mg by mouth as needed. documented as of this encounter Discharge Disposition Disposition Code Departure Means Destination Home or Self Care documented in this encounter Plan of Treatment Upcoming Encounters Date Type Department Care Team (Late st Contact Info) Description 10/05/2025 9:50 AM EST Office Visit [facility] [address] [phone] Satish Toledo MD [address] [phone] documented as of this encounter Procedures Procedure Name Priority Date/Time Associated Diagnosis Comments MR CERVICAL SPINE WO CONTRAST Routine 03/20/2025 6:14 PM EDT Pain documented in this encounter Results * MR Cervical Spine wo Contrast [...] atrophy. -------- FINAL REPORT -------- Dictated By: Ivring Padilla Dictated Date: 03/21/2025 08:24 ET Assigned Physician: Irving Padilla Reviewed and Electronically Signed By: Irving Padilla Signed Date: 03/21/2025 08:46 ET Workstation ID: [id number] Transcribed By: Self Edit Transcribed Date: 03/21/2025 [...] Signed Date: 03/21/2025 08:46 ET Workstation ID: [id number] Transcribed By: Self Edit Transcribed Date: 03/21/2025 08:29 ET Lencho Mcdonald MD IMG MRI PROCEDURES Final Result documented in this encounter Visit Diagnoses Diagnosis Pain Generalized pain Pre-operative cardiovascular examination- Primary documented in this encounter Care Teams Dice Table Person Relationship Specialty Start Date End Date Chapincito Han MD [address] [facility] [address] [place], [place] PCP - General Internal Medicine 11/29/11 documented as of this encounter
--- OUTSIDE RECORDS SUMMARY | 2025-03-23 08:47 | XMS_ITS | Patient Health Record ---
Author Organization [facility] Address [address] [place] [address] Care Team Providers Care Weight Guesser Name Role Phone Maryellen LEAL MSc, Linda Unavailable [phone] Julieth Cadena Unavailable [phone] Allergies Allergen (clinical drug ingredient) Drug/Non Drug Allergy documented on EMR Reaction Allergy Type Onset Date Status ciprofloxacin Cipro Unknown Drug Allergy Act lila Reason For Referral Reason Weeks 1-2: Restore R OM - active and passive. Muscle activation, submaximal isometrics. Protected loading: cycling. Weeks 3-6: Resume preinjection activity. Maximal effort isometric, increase repetitions and duration, early range eccentric loading: avoid full lengthening or affected contractile tissue Week 7+: Full range eccentric loading. Heavy slow concentric-eccentric actions. Full loading: running or jogging. Progress as tolerated. Let pain be guide for progression. ICe/heat prn Diagnosis 1 Primary osteoarthrit is of left knee (M17.12) Referral Organization [facility] Referring Provider First Name Linda Referring Provider Last Name Maryellen Referring Provider Speciality [facility] MEDICINE Referred Provider Specialty Physical The rapist Referral Priority Routine Medications Medication SIG (Take, Route, Frequency, Duration) Notes Start Date End Date Status Irbesartan 150 MG 1 tablet Orally Taki ng 225 mg once a day Active Metoprolol Tartrate 25 MG 1 tablet with food Orally Twice a day Active Finasteride 5 MG 1 tablet Orally Once a day Active Rosuvastatin Calcium 20 MG 1 tablet Oral ly Once a day Active ALPRAZolam 0.5 MG 1 tablet Orally one hour prior to procedure. May repeat x 1 for anxiety for 1 days 04/11/2024 Active oxyCODONE HCl 5 MG 1 tablet Orally ever y 6 hrs as needed for pain. Partial refill upon request for 5 days 04/11/2024 Active Cephalexin 500 MG 2 capsules Orally on e hour prior to procedure for 1 days 04/11/2024 Active Social History Alcohol screen Question Answer Notes Did you have a drink contain ing alcohol in the past year? Yes How often did you have a dri nk containing alcohol in the past year? Four or more times a week How many drinks did you have on a typical day when you were drinking in the past year? 1 or 2 How often did you have six o r more drinks on one occasion in the past year? Never Points 4 Interpretation Positive Drug Question Answer Notes Have you used drugs other th an those for medical reasons in the past 12 months? No Problems Problem Type SNOMED Code ICD Code Onset Dates Problem Status W/U Status Risk Notes Problem [id number] Primary osteoarthritis of left knee (M17.12) Active confirmed Problem Osteoarthritis of knee (100873496) Primary osteoarthritis of right knee (M17.11) Active confirmed Encounters Encounter Location Date Provider Diagnosis [facility] [address] [facility] [address] [place] [phone] 04/17/2024 Linda Bojorquez Primary osteoarthrit is of left knee M17.12 and Primary osteoarthritis of right knee M17.11 [facility] [address] [address] 05/22/2024 Linda Maryellen Primary osteoarthrit is of left knee M17.12 and Primary osteoarthritis of right knee M17.11 [facility] [address] [facility] [address] [place] [address] 03/27/2024 Linda Maryellen [facility] [address] [facility] [address] [place] [address] 04/11/2024 Julieth Cadena [facility] [address] [facility] [address] [place] [address] 04/18/2024 Linda Maryellen [facility] [address] [facility] [address] [place] [address] 04/26/2024 Linda Maryellen [facility] [address] [facility] [address] [place] [address] 05/03/2024 Linda Maryellen [facility] [address] [facility] [address] [place] [address] 05/10/2024 Linda Maryellen [facility] [address] [facility] [address] [place] [address] 06/07/2024 Linda Bojorquez [facility] [address] [facility] [address] [place] [address] 07/13/2024 Linda Bojorquez [facility] [address] [facility] [address] [place] [address] 07/20/2024 Linda Bojorquez Assessments Encounter Date Diagnosis (ICD Code) Assessment Notes Treatment Notes Treatment Clinical Notes Section Notes 04/17/2024 Primary osteoarthritis of left knee (ICD-10 - M17.12) 05/22/2024 Primary osteoarthritis of left knee (ICD-10 - M17.12) 05/22/2024 Primary osteoarthritis of right knee (ICD-10 - M17.11) 04/17/2024 Primary osteoarthritis of right knee (ICD-10 - M17.11) Plan Of Treatment No Information Medical (General) History Medical History History ICD Code HTN Hypercholesterolemia BPH Surgical History Surgery Date(Month/Year) Appendectomy 2011 Bilateral Hip replacement 2017 L3-L4 decompression 2020 Trigger finger release 2021 Left knee arthroscopy 2011
--- OUTSIDE RECORDS SUMMARY | 2025-03-23 08:48 | XMS_ITS ---
Author Organization [facility] Address [address] [facility] [address] [place] [address] Care Team Providers Care [facility] Medical Biller Name Role Phone Maryellen LEAL MSc, Linda Unavailable [phone] REASON FOR VISIT PT Plan to sign Encounters Encounter Location Date Provider Diagnosis [facility] [address] [facility] [address] [place] [address] 07/20/2024 Linda Bojorquez Plan Of Treatment No Information Progress Notes * Sammy CHAMBERLAINDOB:1950 (73 yo M)Acc No.[id number]:07/20/2024 Patient:?Sammy CHAMBERLAIN :1950???Age:73 Y???Sex:Male Address:[address] [place] [id number] * true * Date:? Generated for Dorai ryan/Mookie/eTransmitting on:?03/23/2025 08:47 AM EDT
== END 2025-03-23 09:40 | disposition home or self-care (01) ==
LOC: HO.HUSH 08:41
PROVIDERS: PCP Internal Medicine; Visit Provider Urology
DX: N40.1 Benign prostatic hyperplasia with lower urinary tract symptoms (principal); N13.8 Other obstructive and reflux uropathy; N52.01 Erectile dysfunction due to arterial insufficiency; R97.20 Elevated prostate specific antigen [PSA]; Z13.9 Encounter for screening, unspecified
CPT/HCPCS: 99214; G2211

== ENCOUNTER → 2025-03-23 08:41 | Outpatient (BNVA) | payer MEDICARE, SELFPAY | PROVIDERS: PCP Internal Medicine; Visit Provider Urology | DX: N40.1 Benign prostatic hyperplasia with lower urinary tract symptoms (principal); N13.8 Other obstructive and reflux uropathy; N52.01 Erectile dysfunction due to arterial insufficiency; R97.20 Elevated prostate specific antigen [PSA] | CPT/HCPCS: 81003; 99212 ==